=== PATIENT | male | born 1965 | race Caucasian/White ===

== ENCOUNTER 2019-08-01 10:22 | Outpatient (CLI) | payer BC, SELFPAY ==
[2019-08-01 10:36] LABS: Hematocrit 46.1 % (40.0-54.0); Mean Corpuscular HGB Conc 32.5 g/dL (32.0-36.0); Mean Corpuscular Hemoglobin 28.7 pg (27.0-31.0); Mean Corpuscular Volume 88.1 fL (78.0-102.0); Mean Platelet Volume 8.7 fl (8.7-11.0); Platelet Count Result 266 K/mm3 (150-420); Red Blood Count 5.23 M/mm3 (4.70-6.10); White Blood Count 7.5 K/mm3 (4.8-10.8)
[2019-08-01 10:45] LABS: Hemoglobin A1C 6.3 % (<5.7)
[2019-08-01 10:56] LABS: BNP 52.2 pg/mL (0-100)
[2019-08-01 11:23] LABS: Alanine Aminotransferase 39 U/L (16-63); Alkaline Phosphatase 73 U/L (46-116); Anion Gap 13.4 mmol/L (7-16); Aspartate Amino Transferase 29 U/L (15-37); Bilirubin,Total 0.4 mg/dL (0.00-1.00); Blood Urea Nitrogen 15 mg/dL (7-18); Calcium 8.7 mg/dL (8.5-10.1); Carbon Dioxide 30 mmol/L (21-32); Chloride 105 mmol/L (98-108); Estimated Glomerular Filt Rate > 60; Glucose 109 mg/dL (70-99); Osmolality Calculated 299 mOsm/kg (285-295); Potassium 4.4 mmol/L (3.5-5.1); Sodium 144 mmol/L (136-145); Total Protein 6.9 g/dL (6.4-8.2)
== END 2019-08-01 10:23 | disposition home or self-care (01) ==
LOC: CHSLAB 10:26
PROVIDERS: Nurse Practitioner Family; PCP Family Medicine; Visit Provider Family Medicine
DX: R73.09 Other abnormal glucose (principal); I10 Essential (primary) hypertension
CPT/HCPCS: 36415; 80053; 83036; 83880; 85027

== ENCOUNTER 2020-01-20 16:03 | Outpatient (CLI) | payer BC, SELFPAY ==
--- NOTE | ~2020-01-20 | XR_ITS ---
XR hip RT 2V w AP pelvis DATE: 01/20/2020 16:26 INDICATION: Right hip pain for 6 months, worsening. TECHNIQUE: AP pelvis. AP and lateral views of the right hip COMPARISON: None FINDINGS: Degenerative disease at L4-5 and L5-S1. The pubic symphysis and sacroiliac joints are intact. No pelvic fracture or bone destruction is evide nt. There is enthesopathy of the iliac crests. There is asymmetric prominent right hip joint space narrowing at the right hip degenerative spurring consistent with severe asymmetric right hip osteoarthritis. 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
== END 2020-01-20 16:04 | disposition home or self-care (01) ==
LOC: CHSIMG 16:05
PROVIDERS: PCP Family Medicine; Visit Provider Family Medicine
DX: M25.551 Pain in right hip (principal)
CPT/HCPCS: 73502

== ENCOUNTER 2020-03-05 12:42 | Outpatient (CLI) | payer BC, SELFPAY ==
[2020-03-05 15:25] LABS: SARS-CoV-2 Ag Negative (Negative)
== END 2020-03-05 12:43 | disposition home or self-care (01) ==
PROVIDERS: PCP Nurse Practitioner Family; Visit Provider Nurse Practitioner Family
DX: Z20.828 Contact with and (suspected) exposure to other viral communicable diseases (principal)
CPT/HCPCS: 87426

== ENCOUNTER 2021-01-04 13:59 | Outpatient (NON) | payer BC, SELFPAY | END 2021-01-04 14:00 | disposition home or self-care (01) | LOC: CHSLAB 14:01 | PROVIDERS: Visit Provider Family Medicine | DX: L82.1 Other seborrheic keratosis (principal) | CPT/HCPCS: 88305 ==

== ENCOUNTER 2021-01-06 09:50 | Outpatient (CLI) | payer BC, SELFPAY ==
[2021-01-06 10:01] LABS: Hematocrit 45.8 % (40.0-54.0); Mean Corpuscular HGB Conc 32.8 g/dL (32.0-36.0); Mean Corpuscular Hemoglobin 29.7 pg (27.0-31.0); Mean Corpuscular Volume 90.7 fL (78.0-102.0); Mean Platelet Volume 8.5 fl (8.7-11.0); Platelet Count Result 299 K/mm3 (150-420); Red Blood Count 5.05 M/mm3 (4.70-6.10); Red Cell Distribution Width 12.7 % (11.6-14.4)
[2021-01-06 11:11] LABS: Alanine Aminotransferase 35 U/L (16-63); Albumin Level 4.1 g/dL (3.4-5.0); Alkaline Phosphatase 77 U/L (46-116); Anion Gap 9 mmol/L (8-16); Aspartate Amino Transferase 19 U/L (15-37); Bilirubin,Total 0.4 mg/dL (0.00-1.00); Blood Urea Nitrogen 22 mg/dL (7-18); Calcium 8.7 mg/dL (8.5-10.1); Carbon Dioxide 29 mmol/L (21-32); Chloride 104 mmol/L (98-108); Cholesterol 208 mg/dL (0-200); Estimated Glomerular Filt Rate > 60; Glucose 101 mg/dL (70-99); HDL Direct 42 mg/dL (40-60); LDL Cholesterol Calculated 137 mg/dL (<130); Osmolality Calculated 297 mOsm/kg (285-295); Potassium 4.8 mmol/L (3.5-5.1); Sodium 142 mmol/L (136-145); Triglycerides 147 mg/dL (0-150); Uric Acid 5.9 mg/dL (3.5-7.2)
== END 2021-01-06 09:51 | disposition home or self-care (01) ==
LOC: CHSLAB 09:53
PROVIDERS: PCP Family Medicine; Visit Provider Family Medicine
DX: I10 Essential (primary) hypertension (principal); E78.5 Hyperlipidemia, unspecified; M10.9 Gout, unspecified
CPT/HCPCS: 36415; 80053; 80061; 84550; 85027

== ENCOUNTER 2024-01-09 09:39 | Outpatient (CLI) | payer BC, SELFPAY ==
[2024-01-09 10:01] LABS: Basophils Absolute Auto 0.03 K/mm3 (0.00-0.10); Basophils Percent Auto 0.4 % (0.0-1.0); Eosinophils Absolute Auto 0.12 K/mm3 (0.02-0.50); Eosinophils Percent Auto 1.5 % (1.0-6.0); Hematocrit 45.4 % (40.0-54.0); Hemoglobin 14.7 g/dL (14.0-18.0); Immature Granulocyte Absolute 0.04 K/mm3 (0.00-0.00); Immature Granulocyte Percent A 0.5 % (0.0-0.0); Lymphocytes Absolute Auto 1.57 K/mm3 (1.10-4.50); Mean Corpuscular HGB Conc 32.4 g/dL (32-36); Mean Corpuscular Hemoglobin 28.4 pg (27.0-31.0); Mean Corpuscular Volume 87.6 fL (78.0-102.0); Mean Platelet Volume 8.3 fl (8.7-11.0); Monocytes Absolute Auto 0.66 K/mm3 (0.10-0.90); Monocytes Percent Auto 8.4 % (2.0-11.0); Neutrophils Absolute Auto 5.42 K/mm3 (1.70-7.20); Neutrophils Percent Auto 69.2 % (50.0-70.0); Platelet Count Result 257 K/mm3 (150-420); Red Blood Count 5.18 M/mm3 (4.70-6.10); Red Cell Distribution Width 13.1 % (11.6-14.4); White Blood Count 7.8 K/mm3 (4.8-10.8)
[2024-01-09 10:10] LABS: Hemoglobin A1C 6.4 % (<5.7)
[2024-01-09 10:54] LABS: Alanine Aminotransferase 41 U/L (16-63); Albumin Level 3.7 g/dL (3.4-5.0); Alkaline Phosphatase 82 U/L (46-116); Anion Gap 8 mmol/L (4-12); Aspartate Amino Transferase 23 U/L (15-37); Bilirubin,Total 0.6 mg/dL (0.00-1.00); Blood Urea Nitrogen 18 mg/dL (7-18); Calcium 8.6 mg/dL (8.5-10.1); Carbon Dioxide 29 mmol/L (21-32); Chloride 101 mmol/L (98-108); Cholesterol 206 mg/dL (0-200); Estimated Glomerular Filt Rate 60; Glucose 122 mg/dL (70-99); HDL Direct 42 mg/dL (40-60); LDL Cholesterol Calculated 134 mg/dL (<130); Osmolality Calculated 288 mOsm/kg (285-295); Potassium 4.8 mmol/L (3.5-5.1); Sodium 138 mmol/L (136-145); Total Protein 6.8 g/dL (6.4-8.2); Triglycerides 151 mg/dL (0-150); Uric Acid 7.3 mg/dL (3.5-7.2)
[2024-01-09 11:02] LABS: Thyroid Stimulating Hormone Reflex 3.62 u/IU/mL (0.36-3.74)
== END 2024-01-09 09:40 | disposition home or self-care (01) ==
PROVIDERS: PCP Family Medicine; Visit Provider Family Medicine
DX: E11.9 Type 2 diabetes mellitus without complications (principal); E03.9 Hypothyroidism, unspecified; I10 Essential (primary) hypertension; M10.9 Gout, unspecified
CPT/HCPCS: 36415; 80053; 80061; 83036; 84443; 84550; 85025